=== PATIENT | female | born 1960 | race Caucasian/White ===

== ENCOUNTER → 2023-07-06 16:21 | Outpatient (CLI) | payer MEDICARE, MEDICAID, SELFPAY ==
--- NOTE | 2023-07-06 | DI.RAD_ITS ---
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 COMPARISON: CR XR LUMBAR SPINE COMPLETE from 07/06/2023 CR XR THORACIC SPINE COMPLETE from 07/06/2023 TECHNIQUE:: PA and lateral views of the chest and 5 views of the left ribs were performed. AP and l ateral views of the thoracic spine. FINDINGS: LUNGS: No pneumothorax. Mild basilar atelectasis. No infiltrate or mass. Mild blunting at the hand with a phrenic angles could indicate tiny effusions. HEART: Normal. MEDIASTINUM: Normal. BONES: No acute displaced rib fracture is seen. Moderate T10 compression fracture. Severe T12 compr ession fracture. Bones appear osteopenic.. No bony destructive lesion is seen. IMPRESSION: 1. Unremarkable radiographic appearance of the left ribs. 2. Mild basilar atelectasis. Question tiny effusions. 3. Severe T12 and moderate T10 compression fractures 2, likely old.
--- NOTE | 2023-07-06 | DI.RAD_ITS ---
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 TECHNIQUE: 2D digital imaging was performed. Five views. COMPARISON: No exams were available for comparison FINDINGS: Exam is limited by large quantity of stool overlying the spine. BONES: No fracture or destructive lesion. Vertebral body heights are maintained. Mild facet hypertro phy identified. DISKS: Small endplate osteophytes. Mild narrowing of the L2-3 disc space. Moderate narrowing of the L 4-5 disc space. ALIGNMENT: Moderate levoscoliosis. SOFT TISSUE: Large quantity of stool. IMPRESSION: Scoliosis and degenerative changes. No acute abnormality. DATA REPOSITORY: RADIATION DOSE DELIVERED:
== END ==
PROVIDERS: Visit Provider Nurse Practitioner Family
DX: J98.11 Atelectasis (principal); M48.54XA Collapsed vertebra, not elsewhere classified, thoracic region, initial encounter for fracture; M41.9 Scoliosis, unspecified; M47.816 Spondylosis without myelopathy or radiculopathy, lumbar region
CPT/HCPCS: 71046; 71100; 72072; 72110